=== PATIENT | male | born 1985 | race Caucasian/White ===

== ENCOUNTER 2018-09-14 19:09 | Emergency (ER) | payer MEDICAID ==
[~2018-09-14] VITALS: Ht 180.3 cm; Wt 95.7 kg
[2018-09-14 19:28] VITALS: BP 119/64
--- NOTE | 2018-09-14 19:31 | NUR ---
PT TAKEN TO BED 1.
--- NOTE | 2018-09-14 19:42 | NUR ---
SEEN AND EXAMINED BY LUCILA WITH ORDERS AND CARRIED OUT
[2018-09-14] MEDS ORDERED: ONDANSETRON 4 MG/2 ML VIAL IVP ONE (19:45)
[2018-09-14] MEDS ORDERED: KETOROLAC 30 MG/ML VIAL IVP ONE (19:45)
--- NOTE | 2018-09-14 19:54 | NUR ---
BLOOD DRAWN AND SENT TO LAB, PATIENT TOLERATED WELL.
--- NOTE | 2018-09-14 19:55 | NUR ---
MEDICATED PER ERMDS ORDER TOLERATED WELL
[2018-09-14 20:06] LABS: BASOPHILS % (AUTO) 0.4 % (0.0-2.0); EOSINOPHILS # (AUTO) 0.1 K/uL (0-0.4); EOSINOPHILS % (AUTO) 1.1 % (0.0-4.0); HEMATOCRIT 48.1 % (36-52); LYMPHOCYTES # (AUTO) 2.3 K/uL (2.0-11.5); LYMPHOCYTES % (AUTO) 29.7 % (20.5-51.1); MEAN CORPUSCULAR HEMOGLOBIN 30 pg (27-31); MEAN CORPUSCULAR HGB CONC 33 g/dL (33-37); MEAN CORPUSCULAR VOLUME 90.3 fL (80-94); MONOCYTES # (AUTO) 0.5 K/uL (0.8-1.0); MONOCYTES % (AUTO) 6.1 % (1.7-9.3); NEUTROPHILS % (AUTO) 62.7 % (42.2-75.2); PLATELET COUNT (AUTO) 247 K/uL (140-450); RED BLOOD CELL COUNT(AUTO) 5.32 MIL/uL (4.20-6.10); WHITE BLOOD COUNT (AUTO) 7.9 K/uL (4.8-10.8)
[2018-09-14 20:11] LABS: APPEARANCE,URINE CLEAR (CLEAR); BILIRUBIN,URINE NEGATIVE (NEGATIVE); BLOOD, URINE NEGATIVE (NEGATIVE); COLOR,URINE YELLOW (YELLOW); LEUKOCYTE ESTERASE ,URINE NEGATIVE (NEGATIVE); NITRITE, URINE NEGATIVE (NEGATIVE); UGLUCOSE NEGATIVE (NEGATIVE)
--- NOTE | 2018-09-14 20:12 | NUR ---
PT BACK FROM [facility]
[2018-09-14] MEDS ORDERED: MORPHINE SULFATE 4 MG/ML SYR IVP ONE ×2 (20:20→21:20)
[2018-09-14] MEDS ORDERED: NACL 0.9% 1,000 ML IV ONE (20:20)
[2018-09-14 20:26] LABS: ANION GAP 9.6 (8-16); CARBON DIOXIDE 32.5 mmol/L (21-32); CREATININE 1.2 mg/dL (0.7-1.3); POTASSIUM 4.1 mmol/L (3.5-5.1)
[2018-09-14 20:32] LABS: ALBUMIN 4.1 g/dL (3.4-5.0); TOTAL BILIRUBIN 0.7 mg/dL (0.0-1.0)
--- NOTE | 2018-09-14 21:00 | NUR ---
all results back , and noted by Ermd and for d/c
[2018-09-14 22:16] VITALS: BP 121/75
--- NOTE | 2018-09-14 22:16 | NUR ---
Patient discharged with v/s stable. Written and verbal after care instructions given and explained. Patient alert, oriented and verbalized understanding of instructions. Ambulatory with steady gait. All questions addressed prior to discharge. ID band removed. Patient advised to follow up with PMD. Rx of zofran 4 mg given. Patient educated on indication of medication including possible reaction and side effects. Opportunity to ask questions provided and answered.
== END 2018-09-14 22:16 | disposition home or self-care (01) ==
LOC: MED 19:09
DX: K80.70 Calculus of gallbladder and bile duct without cholecystitis without obstruction (principal)
CPT/HCPCS: 36415; 76705; 80053; 81003; 83690; 85025; 96361; 96374; 96375; 96376; 99284; J1885; J2270; J2405; J7030; Q0092

== ENCOUNTER 2018-10-27 02:27 | Emergency (ER) | payer MEDICAID ==
[~2018-10-27] VITALS: Ht 180.3 cm; Wt 89.8 kg
[2018-10-27 02:30] VITALS: BP 120/74
--- NOTE | 2018-10-27 02:30 | NUR ---
PT AMBULATED TO BED #9
--- NOTE | 2018-10-27 02:39 | NUR ---
32 Y/O MALE PRESENTS TO ED, C/O RIGHT SIDE PAIN 11/16. PT STATES PAIN WAS RECENTLY D/C FROM [facility] 1 MONTH AGO AND ADVISED TO FOLLOW UP WITH PCP REGARDING GALLSTONES. PT WAS RX NORCO 5 BUT STATES MEDICATION IS NOT HELPING. TOOK 2 NORCO 5 YESTERDAY. PT VSS. ERMD AWARE. WILL CONTINUE TO MONITOR.
[2018-10-27] MEDS ORDERED: KETOROLAC 30 MG/ML VIAL IM ONE (03:10)
[2018-10-27] MEDS ORDERED: NACL 0.9% 1,000 ML IV ONE (03:40)
[2018-10-27] MEDS ORDERED: ONDANSETRON 4 MG/2 ML VIAL IVP ONE (03:40)
[2018-10-27] MEDS ORDERED: MORPHINE SULFATE 4 MG/ML SYR IVP ONE (03:40)
[2018-10-27 03:59] LABS: BASOPHILS # (AUTO) 0.1 K/uL (0.00-0.22); BASOPHILS % (AUTO) 0.8 % (0.0-2.0); EOSINOPHILS # (AUTO) 0.1 K/uL (0-0.4); EOSINOPHILS % (AUTO) 0.9 % (0.0-4.0); HEMATOCRIT 45.6 % (36-52); HEMOGLOBIN 15.2 g/dL (12.0-18.0); LYMPHOCYTES # (AUTO) 2.6 K/uL (2.0-11.5); LYMPHOCYTES % (AUTO) 28.7 % (20.5-51.1); MEAN CORPUSCULAR HEMOGLOBIN 31 pg (27-31); MEAN CORPUSCULAR HGB CONC 33 g/dL (33-37); MEAN CORPUSCULAR VOLUME 91.5 fL (80-94); MONOCYTES # (AUTO) 0.5 K/uL (0.8-1.0); MONOCYTES % (AUTO) 5.9 % (1.7-9.3); NEUTROPHILS # (AUTO) 5.7 K/uL (1.8-7.7); NEUTROPHILS % (AUTO) 63.7 % (42.2-75.2); PLATELET COUNT (AUTO) 224 K/uL (140-450); RED BLOOD CELL COUNT(AUTO) 4.99 MIL/uL (4.20-6.10); RED CELL DISTRIBUTION WIDTH 13.4 % (11.6-13.7)
[2018-10-27 04:12] LABS: ANION GAP 12.7 (8-16); CREATININE 0.9 mg/dL (0.7-1.3); POTASSIUM 3.7 mmol/L (3.5-5.1); TOTAL BILIRUBIN 1.4 mg/dL (0.0-1.0)
[2018-10-27] MEDS ORDERED: KETOROLAC 30 MG/ML VIAL IVP ONE (04:40)
[2018-10-27] MEDS ORDERED: MORPHINE SULFATE 2 MG/ML SYR IVP ONE (04:40)
--- NOTE | 2018-10-27 05:33 | NUR ---
PT LAYING ON BED. PT STATES PAIN IS DECREASED. PT VSS. ERMD AWARE. WILL CONTINUE TO MONITOR.
[2018-10-27 06:25] VITALS: BP 125/71
--- NOTE | 2018-10-27 06:25 | NUR ---
PT DISCHARGED WITH PAPER. RX NAPROSYN AND NORCO FOR PAIN. EDUCATED PT REGARDING MEDICATIONS AND S/E. EDUCATED PT REGARDING D/C DIAGNOSIS AND INSTRUCTIONS. PT VERBALIZED UNDERSTANDING OF TEACHING. TOLD PT TO FOLLOW UP WITH PCP AND WHEN TO RETURN TO ED. PT VSS. ALL QUESTIONS ANSWERED.
== END 2018-10-27 06:25 | disposition home or self-care (01) ==
LOC: MED 02:27
DX: K80.20 Calculus of gallbladder without cholecystitis without obstruction (principal)
CPT/HCPCS: 36415; 80053; 83690; 85025; 96372; 96374; 96375; 96376; 99283; J1885; J2270; J2405

== ENCOUNTER 2020-12-25 21:28 | Emergency (ER) | payer MEDICAID ==
[~2020-12-25] VITALS: Ht 180.3 cm; Wt 98.0 kg
[2020-12-25 21:45] VITALS: BP 127/77
--- NOTE | 2020-12-25 21:50 | NUR ---
patient to [facility] ambulatory
[2020-12-26] MEDS ORDERED: AMOX500C25 PO (01:09)
[2020-12-26] MEDS ORDERED: AMOXICILLIN 500 MG CAP PO ONE (01:10)
[2020-12-26 01:15] VITALS: BP 128/72
--- NOTE | 2020-12-26 01:18 | NUR ---
PATIENT DC HOME FEELING WELL VITALS SINGS IN NORMAL LIMITS ALL DC INSTRUCTION GAVE AND EXPLAINED WE RECOMMEND TO COMING BACK TO ER IF THE SYMPTOMS GETT WORSE OR DOENT IMPROVING //Francie HARRIS
== END 2020-12-26 01:18 | disposition home or self-care (01) ==
LOC: MED 21:28
DX: H66.92 Otitis media, unspecified, left ear (principal); Z79.899 Other long term (current) drug therapy
CPT/HCPCS: 99283

== ENCOUNTER 2022-05-17 13:41 | Emergency (ER) | payer SELFPAY ==
[~2022-05-17] VITALS: Ht 180.3 cm; Wt 102.1 kg
[~2022-05-17 13:41] MED LIST: ACYC200C26 PO; AMOX500C25 PO; DOCU-299 PO; ELIMC TP; HYDR-5122 PO; IBUP-2213 PO; SIME80TA41 PO
[2022-05-17 14:12] VITALS: BP 127/71
[2022-05-17 14:42] LABS: APPEARANCE,URINE CLEAR (CLEAR); BILIRUBIN,URINE NEGATIVE (NEGATIVE); BLOOD, URINE NEGATIVE (NEGATIVE); COLOR,URINE YELLOW (YELLOW); LEUKOCYTE ESTERASE ,URINE NEGATIVE (NEGATIVE); NITRITE, URINE NEGATIVE (NEGATIVE); UGLUCOSE NEGATIVE (NEGATIVE)
[2022-05-17] MEDS ORDERED: DICYCLOMINE 10 MG CAP PO ONE (15:35)
[2022-05-17] MEDS ORDERED: KETOROLAC 15 MG/ML VIAL IM ONE (15:35)
[2022-05-17] MEDS ORDERED: ALUMINUM HYD/MAG/SIMETHICONE 30 ML UDC PO ONE (15:35)
[2022-05-17 15:54] LABS: BASOPHILS % (AUTO) 0.7 % (0.0-2.0); EOSINOPHILS # (AUTO) 0.1 K/uL (0-0.4); EOSINOPHILS % (AUTO) 1.6 % (0.0-4.0); HEMOGLOBIN 15.1 g/dL (12.0-18.0); LYMPHOCYTES # (AUTO) 2.2 K/uL (2.0-11.5); LYMPHOCYTES % (AUTO) 32.2 % (20.5-51.1); MEAN CORPUSCULAR HEMOGLOBIN 30 pg (27-31); MEAN CORPUSCULAR HGB CONC 34 g/dL (33-37); MEAN CORPUSCULAR VOLUME 89.6 fL (80-94); MONOCYTES # (AUTO) 0.5 K/uL (0.8-1.0); MONOCYTES % (AUTO) 6.8 % (1.7-9.3); NEUTROPHILS # (AUTO) 4.1 K/uL (1.8-7.7); NEUTROPHILS % (AUTO) 58.7 % (42.2-75.2); PLATELET COUNT (AUTO) 241 K/uL (140-450); RED BLOOD CELL COUNT(AUTO) 5.02 MIL/uL (4.20-6.10); RED CELL DISTRIBUTION WIDTH 13.9 % (11.6-13.7)
[2022-05-17 16:18] LABS: ALBUMIN 3.9 g/dL (3.4-5.0); ANION GAP 9.5 (8-16); CARBON DIOXIDE 31.4 mmol/L (21-32); POTASSIUM 3.9 mmol/L (3.5-5.1); TOTAL BILIRUBIN 1.2 mg/dL (0.0-1.0)
[2022-05-17] MEDS ORDERED: KETOROLAC 15 MG/ML VIAL ONE ×2 (17:05→17:29)
[2022-05-17] MEDS ORDERED: ALUMINUM HYD/MAG/SIMETHICONE 30 ML UDC ONE ×2 (17:06→17:29)
[2022-05-17] MEDS ORDERED: DICYCLOMINE 10 MG CAP ONE ×2 (17:06→17:29)
[2022-05-17] MEDS ORDERED: ONDA-188 SL (17:07)
[2022-05-17] MEDS ORDERED: FAMO-90 PO (17:07)
[2022-05-17] MEDS ORDERED: BEN10 PO (17:07)
--- NOTE | 2022-05-17 17:08 | NUR ---
CALLED TO MEDICATE NO ANSWER IN LOBBY.
--- NOTE | 2022-05-17 17:19 | NUR ---
CALLED IN LOBBY, NO ANSWER.
--- NOTE | 2022-05-17 17:24 | NUR ---
CALLED PATIENTS PHONE NUMBER, PATIENT WILL RETURN TO LOBBY.
[2022-05-17 17:45] VITALS: BP 124/67
--- NOTE | 2022-05-17 17:45 | NUR ---
Patient discharged with v/s stable. Written and verbal after care instructions given. Patient alert, oriented and verbalized understanding of instructions. Ambulatory with steady gait. All questions addressed prior to discharge. ID band removed. Patient advised to follow up with PMD. Rx of KAJAL GUO AND NAT given. Opportunity to ask questions provided and answered. WORK NOTE HANDED TO PATIENT.
== END 2022-05-17 17:45 | disposition home or self-care (01) ==
LOC: MED 13:41 → MERGE 13:41 → MED 17:45
DX: R10.13 Epigastric pain (principal); F10.90 Alcohol use, unspecified, uncomplicated; Z79.899 Other long term (current) drug therapy; Y90.9 Presence of alcohol in blood, level not specified
CPT/HCPCS: 36415; 80053; 81003; 81025; 83690; 85025; 99283; J1885

== ENCOUNTER 2023-11-29 12:16 | Emergency (ER) | payer SELFPAY ==
[~2023-11-29] VITALS: Ht 180.3 cm; Wt 115.7 kg
[~2023-11-29 12:16] MED LIST changes: +BEN10 PO; +FAMO-90 PO; +ONDA-188 SL
[2023-11-29 12:43] VITALS: BP 128/80; PULSE 96; RESP 18; TEMP 98.2; O2SAT 95
[2023-11-29] MEDS ORDERED: TETRACAINE HCL/PF 0.5% OPTH 4 ML BTL ONE (13:14)
[2023-11-29] MEDS: FLUORESCEIN OPTH STRIP 1 MG OP ONE (13:16)
[2023-11-29] MEDS: TETRACAINE 1% 2 ML AMP INJ ONE (13:19)
[2023-11-29] MEDS: TETRACAINE HCL/PF 0.5% OPTH 4 ML BTL OP ONE (13:19)
[2023-11-29] MEDS ORDERED: ERYT5OIN51 OP (13:34)
== END 2023-11-29 13:46 | disposition home or self-care (01) ==
LOC: MED 12:16
DX: S05.02XA Injury of conjunctiva and corneal abrasion without foreign body, left eye, initial encounter (principal); H10.9 Unspecified conjunctivitis; R05.9 Cough, unspecified; Z79.899 Other long term (current) drug therapy; X58.XXXA Exposure to other specified factors, initial encounter; Y93.89 Activity, other specified; Y92.89 Other specified places as the place of occurrence of the external cause; Y99.8 Other external cause status
CPT/HCPCS: 99283; J3490